=== PATIENT | female | born 1980 | race Caucasian/White ===

== ENCOUNTER → 2018-07-01 | Outpatient (CLI) | payer BC ==
--- NOTE | 2018-07-03 12:11 | RAD ---
DATE: 07/01/2018 11:00 AM EXAM: DIGITAL SCREEN BILAT W/CAD HISTORY: routine screening evaluation. COMPARISON: None-Baseline examination Bilateral full field craniocaudal and mediolateral oblique images were obtained using digital technique. This study was interpreted with the benefit of Computerized Aided Detection (CAD ). Breast Density: The breast parenchyma shows scattered fibroglandular densities. Breast parenchyma level B. FINDINGS: An irregular nodular density is seen in the left left axilla tail/upper left breast, not seen on the cc view. No suspicious masses, microcalcifications or architectural distortion is present to suggest malignancy in the right breast. The visualized axillae are unremarkable. IMPRESSION: Left breast mass, findings for which additional imaging is advised. BI-RADS CATEGORY: 0 INCOMPLETE: NEEDS ADDITIONAL IMAGING EVALUATION AND/OR PRIOR MAMMOGRAMS FOR COMPARISON. RECOMMENDED FOLLOW-UP: ADD ADDITIONAL IMAGING additional imaging of the left breast is recommended to include exaggerated left lateral CC image and ultrasound. PQRS compliance statement: Patient information was entered into a reminder system with a target due date-immediate follow-up Mammography is a sensitive method for finding small breast cancers, but it does not detect them all and is not a substitute for careful clinical examination. A negative mammogram does not negate a clinically suspicious finding and should not result in delay in biopsying a clinically suspicious abnormality. "Our facility is accredited by the [employer] Mammography [employer]." MTDD
== END | disposition home or self-care (01) ==
LOC: MAMMO 08:45
DX: Z12.31 Encounter for screening mammogram for malignant neoplasm of breast (principal)
CPT/HCPCS: 77067

== ENCOUNTER → 2018-07-19 | Outpatient (CLI) | payer BC ==
--- NOTE | 2018-07-19 14:20 | RAD ---
DATE: 07/19/2018 EXAM: DIGITAL DIAGNOSTIC LT, BREAST LEFT HISTORY: Suspicious screening study COMPARISON: 07/01/2018 This study was interpreted with the benefit of Computerized Aided Detection (CAD). Breast Density: SCATTERED The breast parenchyma shows scattered fibroglandular densities. Breast parenchyma level B. FINDINGS: Additional views of the left breast including an exaggerated craniocaudad view again demonstrate a small axillary tail region nodule. Its margins are smooth. It demonstrates a hilar lucency compatible with a benign lymph node. It measures 9 mm. There are several smaller but otherwise similar nodules located higher in the left axilla. Left breast ultrasound, 07/19/2018: A targeted ultrasound exam of the left breast was performed. At the 1:00 location approximately 8.5 cm from the nipple there is a 9 mm nodule demonstrating sonographic features typical of a benign lymph node. It demonstrates a normal echogenic hilum. This appears to correspond in location to the mammographic abnormality. No other abnormality is seen in this region. IMPRESSION: Benign-appearing left intramammary lymph node. Routine yearly mammographic screening is suggested. BI-RADS CATEGORY: 2 BENIGN FINDING(S) RECOMMENDED FOLLOW-UP: 12M 12 MONTH FOLLOW-UP PQRS compliance statement: Patient information was entered into a reminder system with a target due date for the next mammogram. Mammography is a sensitive method for finding small breast cancers, but it does not detect them all and is not a substitute for careful clinical examination. A negative mammogram does not negate a clinically suspicious finding and should not result in delay in biopsying a clinically suspicious abnormality. "Our facility is accredited by the [employer] Mammography [employer]."
== END | disposition home or self-care (01) ==
LOC: MAMMO 12:43
PROVIDERS: ATTEND Pediatrics
DX: N63.32 Unspecified lump in axillary tail of the left breast (principal)
CPT/HCPCS: 76641; 77065